=== PATIENT | male | born 1970 | race Two or more races ===

== ENCOUNTER 2022-08-08 19:08 | Emergency (ER) | payer MEDICAID ==
[~2022-08-08] VITALS: Ht 172.7 cm; Wt 76.0 kg
[2022-08-08 19:18] VITALS: BP 121/78
== END 2022-08-08 23:54 | disposition left against medical advice (07) ==
LOC: ER 19:08
DX: Z53.21 Procedure and treatment not carried out due to patient leaving prior to being seen by health care provider (principal)